=== PATIENT | female | born 1960 | race African-American/Black ===

== ENCOUNTER 2019-02-22 07:41 | Emergency (ER) | payer SELFPAY ==
[~2019-02-22] VITALS: Ht 162.6 cm; Wt 104.3 kg
[2019-02-22] MEDS ORDERED: amLODIPine BESYLATE 5 MG TABLET PO ONE (08:30)
--- NOTE | 2019-02-22 08:51 | EKG ---
[facility] [address] [place] [address] Test Date: 2019-02-21 Test Time: 14:59:12 Pat Name: KAREY RESENDIZ Department: Room: Gender: Female Environmental Health Technologist: : 1960 Requested By: TARA RODRIGUEZ Order Number: [id number] Reading MD: Luis Miguel Winslow MD Measurements Intervals [place] Rate: 54 P: 51 DC: 176 QRS: 32 QRSD: 80 T: 66 QT: 486 QTc: 463 Interpretive Statements SINUS BRADYCARDIA WITH OCC. JUNCTIONAL ESCAPE BEAT Electronically Signed On 02-24-2019 15:16:01 CDT by Luis Miguel Wisnlow MD
[2019-02-22 08:58] LABS: BASO # 0.1 x10^3/uL (0.0-0.2); BASO % 1 % (0-3); EOS # 0.3 x10^3/uL (0.0-0.7); EOS % 6 % (0-3); HEMATOCRIT 39.3 % (36.0-47.0); HEMOGLOBIN 12.8 g/dL (12.0-15.5); LYMPH # 1.9 x10^3/uL (1.0-4.8); LYMPH % 42 % (24-48); MEAN CORPUSCULAR HEMOGLOBIN 26 pg (25-35); MEAN CORPUSCULAR HGB CONC 33 g/dL (31-37); MEAN CORPUSCULAR VOLUME 81 fL (79-100); MONO # 0.4 x10^3/uL (0.0-1.1); MONO % 10 % (0-9); NEUT # 1.9 x10^3uL (1.8-7.7); NEUT % 42 % (31-73); PLATELET COUNT 287 x10^3/uL (140-400); RED BLOOD COUNT 4.88 x10^6/uL (3.50-5.40); RED CELL DISTRIBUTION WIDTH 14.9 % (11.5-14.5); WHITE BLOOD COUNT 4.6 x10^3/uL (4.0-11.0)
[2019-02-22 09:03] LABS: CALCIUM 8.8 mg/dL (8.5-10.1); GFR 68.4; POTASSIUM 3.7 mmol/L (3.5-5.1)
[2019-02-22] MEDS ORDERED: AMLO10TA8 PO (09:34)
--- NOTE | 2019-02-22 09:34 | PHYS DOC ---
Past Medical History Past Medical History: Hypertension Past Surgical History: Hysterectomy, Tonsillectomy, Other Additional Past Surgical Histo: "tumor" L foot, vocal cord polyps Alcohol Use: None Drug Use: None Adult General Chief Complaint Chief Complaint: ABSCESS HPI HPI Patient is a 58 year old female who presents to the ER for evaluation. Patient reports a growth on the left labia present for the past 4 months. Reports some discomfort with ambulation and prolonged sitting. No progression in size or skin changes. No fevers. No dysuria. Ongoing for some time unclear what precipitated ER visit this morning. No drainage. No previous episodes. Has not been evaluated in outpatient setting for this. At triage patient noted to be significantly hypertensive. Patient does report that she's been told that she has hypertension before but is not currently on any medications. Patient is noncompliant and does not have health insurance limiting access to resources. Denies any chest pain, shortness of breath, lower extremity edema, decreased exertional capacity, patient changes. Review of Systems Review of Systems Constitutional: Denies fever or chills [] Eyes: Denies change in visual acuity, redness, or eye pain [] HENT: Denies nasal congestion or sore throat [] Respiratory: Denies cough or shortness of breath [] Cardiovascular: No additional information not addressed in HPI [] GI: Denies abdominal pain, nausea, vomiting, bloody stools or diarrhea [] : Denies dysuria or hematuria [] Musculoskeletal: Denies back pain or joint pain [] Integument: Denies rash or skin lesions [] Neurologic: Denies headache, focal weakness or sensory changes [] Endocrine: Denies polyuria or polydipsia [] All other systems were reviewed and found to be within normal limits, except as documented in this note. Current Medications Current Medications Current Medications Medications (Trade) Dose Ordered Sig/Goldie Start Time Stop Time Status Last Admin Dose Admin Amlodipine Besylate (Norvasc) 10 mg 1X ONCE 02/22/19 08:30 02/22/19 08:31 DC 02/22/19 08:42 10 MG Allergies Allergies Allergies Coded Allergies Type Severity Reaction Last Updated Verified No Known Medication Allergies Allergy Unknown 02/22/19 Yes sulfamethoxazole Adverse Reaction Mild "I taste metal" 02/22/19 Yes trimethoprim Adverse Reaction Mild "I taste metal" 02/22/19 Yes Physical Exam Physical Exam Constitutional: Obese, nontoxic appearing. HENT: Normocephalic, atraumatic, Eyes: PERRLA, EOMI Neck: supple, no stridor. [] Cardiovascular:Heart rate regular rhythm, no murmur [] Lungs & Thorax: Bilateral breath sounds clear to auscultation [] Abdomen: Obese : 1.5 cm well defined firm cyst like swelling to superior aspect of left labia. There are no overlying skin changes. There are no skin defects or areas of drainage. Area is very mildly tender. External genitalia is otherwise grossly normal Skin: Warm, dry, no erythema, no rash. [] Back: No tenderness, no CVA tenderness. [] Extremities: ROM intact, no edema. [] Neurologic: Alert and oriented X 3, no focal deficits noted. [] Psychologic: Affect normal, judgement normal, mood normal. [] Current Patient Data Vital Signs Vital Signs Date Time Temp Pulse Resp B/P (MAP) Pulse Ox O2 Delivery O2 Flow Rate FiO2 02/22/19 08:42 54 213/96 02/22/19 07:50 97.9 20 97 Room Air 97.9 Lab Values Laboratory Tests Test 02/22/19 08:25 White Blood Count 4.6 x10^3/uL (4.0-11.0) Red Blood Count 4.88 x10^6/uL (3.50-5.40) Hemoglobin 12.8 g/dL (12.0-15.5) Hematocrit 39.3 % (36.0-47.0) Mean Corpuscular Volume 81 fL (79-100) Mean Corpuscular Hemoglobin 26 pg (25-35) Mean Corpuscular Hemoglobin Concent 33 g/dL (31-37) Red Cell Distribution Width 14.9 % (11.5-14.5) H Platelet Count 287 x10^3/uL (140-400) Neutrophils (%) (Auto) 42 % (31-73) Lymphocytes (%) (Auto) 42 % (24-48) Monocytes (%) (Auto) 10 % (0-9) H Eosinophils (%) (Auto) 6 % (0-3) H Basophils (%) (Auto) 1 % (0-3) Neutrophils # (Auto) 1.9 x10^3uL (1.8-7.7) Lymphocytes # (Auto) 1.9 x10^3/uL (1.0-4.8) Monocytes # (Auto) 0.4 x10^3/uL (0.0-1.1) Eosinophils # (Auto) 0.3 x10^3/uL (0.0-0.7) Basophils # (Auto) 0.1 x10^3/uL (0.0-0.2) Sodium Level 142 mmol/L (136-145) Potassium Level 3.7 mmol/L (3.5-5.1) Chloride Level 105 mmol/L (98-107) Carbon Dioxide Level 25 mmol/L (21-32) Anion Gap 12 (6-14) Blood Urea Nitrogen 15 mg/dL (7-20) Creatinine 1.0 mg/dL (0.6-1.0) Estimated GFR (Cockcroft-Gault) 68.4 Glucose Level 109 mg/dL (70-99) H Calcium Level 8.8 mg/dL (8.5-10.1) Troponin I Quantitative < 0.017 ng/mL (0.000-0.055) Laboratory Tests 02/22/19 08:25 Laboratory Tests 02/22/19 08:25 EKG EKG 0835: Normal sinus rhythm, no significant ST segment changes. T-wave inversions in V4, V5, V6. No previous to compare to.[] Radiology/Procedures Radiology/Procedures [] Course & Med Decision Making Course & Med Decision Making Pertinent Labs and Imaging studies reviewed. (See chart for details) []0920: Genital exam not consistent with a access or a Bartholin's cyst. It has been ongoing for a long period time. Advised close follow-up with [facility]. Patient provided with resources for this given lack of medical insurance. Patient noted to be significantly hypertensive but is asymptomatic. Labs reassuring with normal renal function, normal troponin, reassuring EKG. Discussed labs at length with patient. Discussed risks of prolonged hypertension. Patient was given 10 mg of amlodipine with decrease of systolic blood pressure from 220s to 190s. We'll provide a 30 day supply of amlodipine 10mg. counseled extensively on need for close outpatient PCP follow-up. Counseled to monitor and log blood pressure. ER return precautions given. Patient verbalized understanding. All questions answered. Dragon Disclaimer Dragon Disclaimer This electronic medical record was generated, in whole or in part, using a voice recognition dictation system. Departure Departure Impression: Primary Impression: Labial cyst Additional Impression: Hypertension Disposition: 01 HOME, SELF-CARE Condition: IMPROVED Referrals: NO PCP (PCP) Patient Instructions: Hypertension Additional Instructions: [facility] Please read the attached handouts. Please take ibuprofen 600 mg 3 times a day with food for pain. You can alternate this with acetaminophen 1000 g every 6 hours. Do not exceed 4000 mg of acetaminophen in a 24-hour period. Call tomorrow to establish an appointment with an [facility] for your labial cyst. Call tomorrow to establish an appointment with a primary care doctor for your hypertension. He was found to be hypertensive in the ER. I discharge on the medication. Please take this as prescribed. Please check your blood pressure daily and log it until seen by primary care physician. Return to the ER if your symptoms worsen or you have any other concerns. Scripts Amlodipine Besylate (AMLODIPINE BESYLATE) 10 Mg Tablet 10 MG PO DAILY for 30 Days, #30 TAB Prov: TARA RODRIGUEZ DO 02/22/19 Problem Qualifiers TARA RODRIGUEZ DO Feb 22, 2019 09:34
[2019-02-22 10:00] VITALS: BP 187/88
--- NOTE | 2019-02-23 07:46 | EKG ---
[facility] [address] [place] [address] Test Date: 2019-02-22 Test Time: 08:35:11 Pat Name: KAREY RESENDIZ Department: Room: Gender: F Internal Medicine Nurse: : 1960 Requested By: TARA RODRIGUEZ Order Number: [id number] Reading MD: Luis Miguel Winslow MD Measurements Intervals [place] Rate: 57 P: 0 [place]: 164 QRS: 90 QRSD: 106 T: -60 QT: 432 QTc: 424 Interpretive Statements SINUS RHYTHM CONSIDER LEFT VENTRICULAR HYPERTROPHY T ABNORMALITY IN INFERIOR LEADS ABNORMAL ECG Electronically Signed On 02-23-2019 10:08:24 CDT by Luis Miguel Winslow MD
== END 2019-02-22 10:01 | disposition home or self-care (01) ==
LOC: ER 07:41
DX: N90.7 Vulvar cyst (principal); I10 Essential (primary) hypertension; E66.1 Drug-induced obesity; Z68.39 Body mass index [BMI] 39.0-39.9, adult; Z90.710 Acquired absence of both cervix and uterus; Z90.89 Acquired absence of other organs; Z88.2 Allergy status to sulfonamides; Z88.1 Allergy status to other antibiotic agents
CPT/HCPCS: 36415; 80048; 84484; 85025; 93005; 99283; 99284